=== PATIENT | female | born 1960 | race Caucasian/White ===

== ENCOUNTER → 2017-01-20 | Outpatient (CLI) | payer MEDICAID ==
[~2017-01-20] MED LIST: ABILIFY; ABILIFY5 MG PO; ANCEF1 GM IV; ATARAX10 MG PO; BACTRIM DS 8001 TA1 PO; CALCIUM 600 W/D1 TAB PO; CELEBREX200 MG PO; CIPROFLOXACIN500 MG PO; CLARITIN10 MG PO; CLINDAMYCIN HC300 MG PO; CLONIDINE0.1 MG PO; CYMBALTA30 MG PO; CYMBALTA60 MG PO; DAILY VITAMIN1 TAB PO; FLAGYL500 MG PO; FLEXERIL10 MG PO; HUMIRA40 MG/0.1 SC; HYDR12.5C PO; HYDRODIURIL25 MG PO; KEFLEX250 MG PO; LYRICA300 MG PO; Lotrimin 1%15 GM T; METHOTREXATE1 PO1 PO; METHOTREXATE2.5 M1 PO; NATURE'S BLEND F1 MG PO; PRAVASTATIN SOD20 MG PO; PREDNISOLONE5 MG PO; PREDNISONE5 MG PO; PRILOSEC40 MG PO; ROBAXIN750 MG PO; SPIRIVA18 MCG PO; SYMBICORT1 AE1 INH; TYLENOL W/CODEI1 TA2 PO; VENTOLIN0.09 MG/AC INH; VOLTAREN50 M1 PO; ZOFRAN4 MG PO
== END | disposition home or self-care (01) ==
LOC: CP 14:06
DX: J43.9 Emphysema, unspecified (principal)

== ENCOUNTER 2017-03-01 16:01 | Inpatient (IN) | payer MEDICAID ==
[~2017-03-01] VITALS: Ht 162.5 cm; Wt 141.3 kg
[2017-03-01 16:16] VITALS: BP 122/56
[2017-03-01] MEDS ORDERED: CELEBREX100 MG PO (16:29)
[2017-03-01] MEDS ORDERED: ATARAX,VISTARIL50 MG PO (16:29)
[2017-03-01] MEDS ORDERED: PROVENTIL0.09 MG/A1 INH (16:29)
[2017-03-01] MEDS ORDERED: CLONIDINE HYDR0.1 MG PO (16:30)
[2017-03-01] MEDS ORDERED: CYMBALTA60 MG PO (16:30)
[2017-03-01] MEDS ORDERED: CLARITIN10 MG PO (16:30)
[2017-03-01] MEDS ORDERED: GLYBURIDE5 MG PO (16:31)
[2017-03-01] MEDS ORDERED: CYCLOBENZAPRINE10 MG PO (16:31)
[2017-03-01] MEDS ORDERED: LYRICA300 MG PO (16:31)
[2017-03-01] MEDS ORDERED: OXYGEN NAS (16:32)
[2017-03-01] MEDS ORDERED: KADIAN30 M1 PO (16:32)
[2017-03-01] MEDS ORDERED: OTEZLA30 MG PO (16:32)
[2017-03-01] MEDS ORDERED: PREDNISONE1 MG PO (16:32)
[2017-03-01] MEDS ORDERED: PRILOSEC20 M1 PO (16:33)
[2017-03-01] MEDS ORDERED: SYMBICORT1 AE1 INH (16:33)
[2017-03-01] MEDS ORDERED: SPIRIVA18 MCG PO (16:33)
[2017-03-01] MEDS ORDERED: TYLENOL WITH CO1 TA1 PO ×2 (16:34→18:32)
[2017-03-01 16:35] LABS: BASO % 0.4 % (0.0-1.0); EOS # 0.2 10*3/uL (0.0-0.4); EOS % 2.4 % (1.0-4.0); HEMATOCRIT 40.7 % (37.0-47.0); HEMOGLOBIN 12.7 g/dl (12.0-16.0); LYMPH # 1.6 10*3/uL (1.3-4.4); LYMPH % 23.2 % (27.0-41.0); MEAN CELL VOLUME 81.6 fl (81.0-99.0); MEAN CORPUSCULAR HGB 25.5 pg (27.0-31.0); MEAN CORPUSCULAR HGB CONC 31.2 g/dl (33.0-37.0); MEAN PLATELET VOLUME 10.4 fl (9.6-12.3); MONO # 0.5 10*3/uL (0.1-1.0); MONO % 7.4 % (3.0-9.0); NEUT # 4.5 10*3/uL (2.3-7.9); NEUT % 66.3 % (47.0-73.0); PLATELET COUNT AUTOMATED 255 10*3/uL (130-400); RED BLOOD COUNT 4.99 10*6/uL (4.10-5.10); RED CELL DISTRI WIDTH 15.6 % (0-14.5); WHITE BLOOD COUNT 6.7 10*3/uL (4.8-10.8)
[2017-03-01 16:52] LABS: ALBUMIN 2.9 gm/dl (3.1-4.5); ALKALINE PHOSPHATASE 128 U/L (45-117); BILIRUBIN, TOTAL 0.3 mg/dl (0.2-1.0); BUN 4 mg/dl (7-24); CARBON DIOXIDE 33 mmol/L (21-32); CHLORIDE 100 mmol/L (98-107); EST GLOM FILT AFRICAN AMERICAN > 60 ml/min; GLUCOSE 123 mg/dL (65-99); MAGNESIUM 1.5 mg/dL (1.5-2.1); POTASSIUM 3.6 mmol/L (3.5-5.1); SGOT/AST 39 IU/L (3-35); SGPT/ALT 42 U/L (12-78); SODIUM 142 mmol/L (136-145); TOTAL PROTEIN 7.5 gm/dL (6.4-8.2)
[2017-03-01 17:11] VITALS: BP 169/106
[2017-03-01 17:12] LABS: TROPONIN I < 0.015 ng/ml (<0.045)
[2017-03-01 18:05] VITALS: BP 100/70
[2017-03-01] MEDS ORDERED: MS CONTIN30 MG PO (18:33)
[2017-03-01] MEDS ORDERED: PROAIR HFA8.5 GM INH (18:34)
[2017-03-01] MEDS ORDERED: DULERA 200 MCG8.8 GM IH (18:40)
[2017-03-01 20:00] VITALS: BP 123/74
[2017-03-01 21:47] LABS: LA>2 REFLEX 2 HR DRAW NOW
[2017-03-01 22:04] LABS: LA>2 RFLX FOLLOW UP AT 2 HRS 3.4 mmol/L (0.4-2.0)
[2017-03-01 23:54] LABS: LA>2 REFLEX 4 HR DRAW NOW
[2017-03-02] VITALS: BP 127/76
[2017-03-02 04:36] LABS: BASO % 0.2 % (0.0-1.0); HEMATOCRIT 39.8 % (37.0-47.0); HEMOGLOBIN 12.4 g/dl (12.0-16.0); IG # 0.1 10*3/uL (0.0-0.1); LYMPH # 0.7 10*3/uL (1.3-4.4); MEAN CELL VOLUME 81.7 fl (81.0-99.0); MEAN CORPUSCULAR HGB 25.5 pg (27.0-31.0); MEAN CORPUSCULAR HGB CONC 31.2 g/dl (33.0-37.0); MEAN PLATELET VOLUME 10.5 fl (9.6-12.3); MONO # 0.1 10*3/uL (0.1-1.0); MONO % 1.5 % (3.0-9.0); NEUT # 5.7 10*3/uL (2.3-7.9); NEUT % 86.8 % (47.0-73.0); PLATELET COUNT AUTOMATED 249 10*3/uL (130-400); RED BLOOD COUNT 4.87 10*6/uL (4.10-5.10); RED CELL DISTRI WIDTH 15.7 % (0-14.5); WHITE BLOOD COUNT 6.6 10*3/uL (4.8-10.8)
[2017-03-02 04:56] LABS: HEMOGLOBIN A1c 6.6 % (4.8-5.6)
[2017-03-02 05:00] LABS: ALBUMIN 2.7 gm/dl (3.1-4.5); ALKALINE PHOSPHATASE 121 U/L (45-117); BILIRUBIN, TOTAL 0.2 mg/dl (0.2-1.0); BUN 5 mg/dl (7-24); CARBON DIOXIDE 28 mmol/L (21-32); CHLORIDE 102 mmol/L (98-107); CHOLESTEROL 201 mg/dL (<200); EST GLOM FILT AFRICAN AMERICAN > 60 ml/min; FREE T4 1.16 ng/dl (0.76-1.46); GLUCOSE 225 mg/dL (65-99); HDL CHOLESTEROL 37 mg/dl (40-60); LDL CHOLESTEROL 145 mg/dL (9-159); MAGNESIUM 1.7 mg/dL (1.5-2.1); POTASSIUM 3.8 mmol/L (3.5-5.1); PROTHROMBIN TIME 11.1 SECONDS (9.0-12.4); SGOT/AST 23 IU/L (3-35); SGPT/ALT 37 U/L (12-78); SODIUM 142 mmol/L (136-145); TOTAL PROTEIN 7.1 gm/dL (6.4-8.2); TRIGLYCERIDES 97 mg/dl (<150); VLDL CHOLESTEROL 19 mg/dL (6-40)
[2017-03-02 05:05] LABS: THYROID STIM HORMONE (HS) 0.235 uIU/ml (0.358-4.75)
[2017-03-02 06:27] LABS: LA>2 REFLEX 2 HR DRAW NOW
[2017-03-02 06:45] LABS: LA>2 RFLX FOLLOW UP AT 2 HRS 3.1 mmol/L (0.4-2.0)
[2017-03-02 07:49] LABS: FOLIC ACID 14.39 ng/mL (>5.38); VITAMIN D, 25-HYDROXY 10.1 ng/mL (30-100)
[2017-03-02 08:00] VITALS: BP 132/68
[2017-03-02 08:36] LABS: LA>2 REFLEX 4 HR DRAW NOW
== END 2017-03-02 09:49 | disposition left against medical advice (07) | DRG 871 ==
LOC: ED 16:01 → EDHOLD 17:19 → 5E 17:46
PROVIDERS: Emergency Medicine; Internal Medicine; Internal Medicine Hospice and Palliative Medicine
DX: A41.9 Sepsis, unspecified organism (principal); J96.01 Acute respiratory failure with hypoxia; E43 Unspecified severe protein-calorie malnutrition; J45.901 Unspecified asthma with (acute) exacerbation; J18.9 Pneumonia, unspecified organism; Z68.43 Body mass index [BMI] 50.0-59.9, adult; E11.65 Type 2 diabetes mellitus with hyperglycemia; I10 Essential (primary) hypertension; F32.9 Major depressive disorder, single episode, unspecified; I25.10 Atherosclerotic heart disease of native coronary artery without angina pectoris; Z66 Do not resuscitate; F41.1 Generalized anxiety disorder; K58.9 Irritable bowel syndrome, unspecified; E66.01 Morbid (severe) obesity due to excess calories; R65.20 Severe sepsis without septic shock; D72.810 Lymphocytopenia; L30.9 Dermatitis, unspecified; L40.50 Arthropathic psoriasis, unspecified; Z53.21 Procedure and treatment not carried out due to patient leaving prior to being seen by health care provider; Z88.0 Allergy status to penicillin; Z88.2 Allergy status to sulfonamides; Z88.1 Allergy status to other antibiotic agents; Z80.0 Family history of malignant neoplasm of digestive organs; Z82.49 Family history of ischemic heart disease and other diseases of the circulatory system; Z90.49 Acquired absence of other specified parts of digestive tract; Z90.710 Acquired absence of both cervix and uterus; Z88.9 Allergy status to unspecified drugs, medicaments and biological substances

== ENCOUNTER → 2017-07-17 | Outpatient (CLI) | payer MEDICAID ==
[~2017-07-17] MED LIST changes: +ATARAX,VISTARIL50 MG PO; +CELEBREX100 MG PO; +CLONIDINE HYDR0.1 MG PO; +CYCLOBENZAPRINE10 MG PO; +DULERA 200 MCG8.8 GM IH; +GLYBURIDE5 MG PO; +KADIAN30 M1 PO; +MS CONTIN30 MG PO; +OTEZLA30 MG PO; +OXYGEN NAS; +PREDNISONE1 MG PO; +PRILOSEC20 M1 PO; +PROAIR HFA8.5 GM INH; +PROVENTIL0.09 MG/A1 INH; +TYLENOL WITH CO1 TA1 PO
--- NOTE | 2017-07-17 10:54 | NUR ---
PT WAS HER FOR SIX MINUTE ASSESSMENT. PT DID QUALIFY FOR HOME OXYGEN. PT AT REST SPO2 WAS 90% RA, HR 71, RR 18, BP 120/78 PT AMBULATED APPROXIMATELY 10FT SPO2 87-88% PT WAS PLACED ON 2L/NC SPO2 99% PT CONTINUED TO AMBULATE FOR APPROXIMATELY 20FT PT WAS VERY SHORT OF BREATH SPO2 97% HR 59, RR 21, BP 128/88
== END ==
LOC: CP 09:36
DX: Z53.9 Procedure and treatment not carried out, unspecified reason (principal)

== ENCOUNTER 2019-02-26 18:03 | Emergency (ER) | payer MEDICAID ==
[~2019-02-26] VITALS: Ht 157.4 cm; Wt 135.6 kg
== END 2019-02-26 21:19 | disposition home or self-care (01) ==
LOC: ED 18:03
DX: S80.11XA Contusion of right lower leg, initial encounter (principal); Z79.899 Other long term (current) drug therapy; Z88.0 Allergy status to penicillin; Z88.2 Allergy status to sulfonamides; Z88.6 Allergy status to analgesic agent; Z88.1 Allergy status to other antibiotic agents; Z88.8 Allergy status to other drugs, medicaments and biological substances; W22.03XA Walked into furniture, initial encounter; Y93.89 Activity, other specified; Y92.89 Other specified places as the place of occurrence of the external cause; Y99.8 Other external cause status

== ENCOUNTER → 2019-06-24 | Outpatient (CLI) | payer MEDICAID ==
--- NOTE | ~2019-06-24 | HM ---
[place], [place] HOLTER MONITOR REPORT NAME: ARISTIDES VILLAFANA UNIT #: [id number] ROOM: DOCTOR: ANA PAULA MILLER MD BIRTHDATE: [birth year] DOS: 24-HOUR HOLTER MONITOR The patient remained in sinus rhythm throughout the entire period. Minimum heart rate is 68, maximum heart rate is 145, and average is 94 beats per minute. The patient had episodes of sinus tachycardia and no significant ventricular or supraventricular dysrhythmia. Isolated premature atrial contractions are present. Few episodes of atrial tachycardia. No significant pauses. FINAL IMPRESSION: Sinus rhythm with few episodes of sinus tachycardia underlying sinus tachycardia with an average rate of 94 beats per minute. No significant pauses. No other ventricular or supraventricular dysrhythmia. ANA PAULA MILLER MD CM:HOLTER:HOLTER MONITOR REPORT [id number] ANA PAULA MILLER MD
== END | disposition home or self-care (01) ==
LOC: CARD 08:45
DX: E11.9 Type 2 diabetes mellitus without complications (principal); I10 Essential (primary) hypertension; R00.2 Palpitations

== ENCOUNTER 2019-09-13 07:55 | Emergency (ER) | payer MEDICAID ==
[~2019-09-13] VITALS: Wt 130.6 kg
--- NOTE | ~2019-09-13 | EKG ---
[place], [place] ELECTROCARDIOGRAM REPORT NAME: ARISTIDES VILLAFANA UNIT #: [id number] ROOM: DOCTOR: EPIPHANY DRAFT REPORT BIRTHDATE: [birth year] [facility] Test Date: 2019-09-13 Test Time: 08:15:04 Pat Name: ARISTIDES VILLAFANA Department: Room: Gender: F Photograph Retoucher: : 1960 Requested By: MARIO ALBERTO JUAN Order Number: [id number] Reading MD: Mandi Britton MD Measurements Intervals [place] Rate: 117 P: 65 [place]: 151 QRS: -22 QRSD: 83 T: 28 QT: 331 QTc: 462 Interpretive Statements Sinus tachycardia Anterolateral infarct, old Baseline wander in lead(s) V1,V3,V4,V5,V6 No previous ECG available for comparison Electronically Signed On 09-14-2019 15:06:53 PST by Mandi Britton MD CM:EKGRPT:ELECTROCARDIOGRAM REPORT [id number] MARIO ALBERTO HASSAN DRAFT REPORT MARIO ALBERTO JUAN DO
[2019-09-13 08:25] LABS: BILIRUBIN 1+ (NEGATIVE); BLOOD NEGATIVE (NEGATIVE); CLARITY CLOUDY (CLEAR); COLOR YELLOW (YELLOW); GLUCOSE NEGATIVE (NEGATIVE); KETONE 1+ (NEGATIVE); LEUKO ESTERASE TRACE (NEGATIVE); NITRITE NEGATIVE (NEGATIVE); PH 5.5 (5.0-9.0); SPECIFIC GRAVITY >= 1.030 (1.005-1.030)
[2019-09-13 08:30] LABS: HEMATOCRIT 42.3 % (37.0-47.0); HEMOGLOBIN 13.7 g/dl (12.0-16.0); MEAN CELL VOLUME 75.4 fl (81.0-99.0); MEAN CORPUSCULAR HGB 24.4 pg (27.0-31.0); MEAN CORPUSCULAR HGB CONC 32.4 g/dl (33.0-37.0); MEAN PLATELET VOLUME 11.4 fl (9.6-12.3); PLATELET COUNT AUTOMATED 291 10*3/uL (130-400); RED BLOOD COUNT 5.61 10*6/uL (4.10-5.10); WHITE BLOOD COUNT 31.5 10*3/uL (4.8-10.8)
[2019-09-13 08:35] LABS: WBC 31-40 wbc/hpf (0-5)
[2019-09-13 08:36] LABS: BACTERIA 3+
[2019-09-13 08:40] LABS: ACT PARTIAL THROMBO TIME 32.4 SECONDS (20.0-32.1); INTERNATIONAL NORM RATIO 1.2 (2.0-3.5)
[2019-09-13 08:45] LABS: ALBUMIN 2.4 gm/dl (3.1-4.5); ALKALINE PHOSPHATASE 140 U/L (45-117); BUN 8 mg/dl (7-24); CHLORIDE 94 mmol/L (98-107); CREATININE 0.94 mg/dL (0.55-1.02); LIPASE 35 U/L (73-393); POTASSIUM 3.4 mmol/L (3.5-5.1); SGOT/AST 11 IU/L (3-35); SGPT/ALT 15 U/L (12-78); SODIUM 131 mmol/L (136-145); TOTAL PROTEIN 7.4 gm/dL (6.4-8.2)
[2019-09-13 08:48] LABS: TROPONIN I < 0.015 ng/ml (<0.045)
[2019-09-13 08:50] LABS: TARGET CELLS FEW; TOTAL CELLS COUNTED 100 #CELLS; TOXIC GRANULATION SLIGHT
[2019-09-13 08:51] LABS: POLYCHROMASIA SLIGHT
[2019-09-13 08:52] LABS: MICROCYTOSIS SLIGHT; PLATELET SUFFICIENCY NORMAL (NORMAL)
== END 2019-09-13 14:09 | disposition short-term general hospital (02) ==
LOC: ED 07:55
PROVIDERS: Emergency Medicine
DX: A41.9 Sepsis, unspecified organism (principal); R65.20 Severe sepsis without septic shock; L03.114 Cellulitis of left upper limb; L02.512 Cutaneous abscess of left hand; G93.41 Metabolic encephalopathy; R41.0 Disorientation, unspecified; L40.50 Arthropathic psoriasis, unspecified; J45.909 Unspecified asthma, uncomplicated; K21.9 Gastro-esophageal reflux disease without esophagitis; I10 Essential (primary) hypertension; E66.01 Morbid (severe) obesity due to excess calories; E11.9 Type 2 diabetes mellitus without complications; Z88.0 Allergy status to penicillin; Z88.2 Allergy status to sulfonamides; Z88.6 Allergy status to analgesic agent; Z88.8 Allergy status to other drugs, medicaments and biological substances; Z79.899 Other long term (current) drug therapy; Z90.49 Acquired absence of other specified parts of digestive tract; Z90.710 Acquired absence of both cervix and uterus

== ENCOUNTER → 2020-06-27 | Outpatient (CLI) | payer MEDICAID ==
[2020-06-27 14:29] LABS: BASO # 0.1 10*3/uL (0.0-0.1); BASO % 0.5 % (0.0-1.0); EOS # 0.3 10*3/uL (0.0-0.4); EOS % 2.9 % (1.0-4.0); HEMATOCRIT 38.7 % (37.0-47.0); LYMPH # 2.5 10*3/uL (1.3-4.4); LYMPH % 27.6 % (27.0-41.0); MEAN CELL VOLUME 74.7 fl (81.0-99.0); MEAN CORPUSCULAR HGB CONC 29.5 g/dl (33.0-37.0); MEAN PLATELET VOLUME 11.2 fl (9.6-12.3); MONO # 0.5 10*3/uL (0.1-1.0); MONO % 5.2 % (3.0-9.0); NEUT # 5.8 10*3/uL (2.3-7.9); NEUT % 63.3 % (47.0-73.0); PLATELET COUNT AUTOMATED 332 10*3/uL (130-400); RED BLOOD COUNT 5.18 10*6/uL (4.10-5.10); RED CELL DISTRI WIDTH 18.7 % (0-14.5); RETICULOCYTE % 1.79 % (0.50-2.50); WHITE BLOOD COUNT 9.1 10*3/uL (4.8-10.8)
[2020-06-27 14:59] LABS: ALBUMIN 2.7 gm/dl (3.1-4.5); ALKALINE PHOSPHATASE 123 U/L (45-117); BUN 9 mg/dl (7-24); CHLORIDE 102 mmol/L (98-107); CHOLESTEROL 199 mg/dL (<200); CREATININE 0.76 mg/dL (0.55-1.02); GAMMA GLUTAMYL TRANSPEPTIDASE 34 U/L (5-55); HDL CHOLESTEROL 40 mg/dl (40-60); IRON 27 ug/dL (50-170); LDL CHOLESTEROL 112 mg/dL (9-159); POTASSIUM 3.8 mmol/L (3.5-5.1); SGOT/AST 20 IU/L (3-35); SGPT/ALT 21 U/L (12-78); SODIUM 138 mmol/L (136-145); T3 UPTAKE 31 % (31-39); TOTAL IRON BINDING CAPACITY 401 ug/dl (250-450); TOTAL PROTEIN 7.6 gm/dL (6.4-8.2); TRIGLYCERIDES 234 mg/dl (<150); VLDL CHOLESTEROL 47 mg/dL (6-40)
[2020-06-27 15:05] LABS: THYROXINE (T4) TOTAL 8.7 ug/dl (4.8-13.9)
[2020-06-27 16:14] LABS: FERRITIN 13.3 ng/mL (10.0-291.0); VITAMIN D, 25-HYDROXY 43.6 ng/mL (30-100)
[2020-06-28 06:07] LABS: HEP B CORE AB TOTAL Negative (Negative); HEP B CORE AB, IGM Negative (Negative); HEPATITIS B SURFACE AB Non Reactive (.); HEPATITIS B SURFACE AG Negative (Negative)
== END | disposition home or self-care (01) ==
LOC: LAB 13:03
PROVIDERS: Internal Medicine Rheumatology; ATTEND Family Medicine
DX: E10.9 Type 1 diabetes mellitus without complications (principal); I40.9 Acute myocarditis, unspecified; E55.9 Vitamin D deficiency, unspecified; R79.89 Other specified abnormal findings of blood chemistry

== ENCOUNTER → 2020-11-20 | Outpatient (CLI) | payer MEDICAID | END | disposition home or self-care (01) | LOC: COVID19 14:17 | PROVIDERS: ATTEND Family Medicine | DX: U07.1 COVID-19 (principal) ==

== ENCOUNTER → 2021-06-01 | Outpatient (CLI) | payer MEDICAID ==
[2021-06-01 12:41] LABS: BASO % 0.4 % (0.0-1.0); EOS # 0.2 10*3/uL (0.0-0.4); EOS % 1.5 % (1.0-4.0); HEMATOCRIT 34.9 % (37.0-47.0); LYMPH % 18.8 % (27.0-41.0); MEAN CELL VOLUME 71.7 fl (81.0-99.0); MEAN CORPUSCULAR HGB 21.4 pg (27.0-31.0); MEAN CORPUSCULAR HGB CONC 29.8 g/dl (33.0-37.0); MONO # 0.5 10*3/uL (0.1-1.0); MONO % 4.6 % (3.0-9.0); NEUT % 73.8 % (47.0-73.0); PLATELET COUNT AUTOMATED 343 10*3/uL (130-400); RED BLOOD COUNT 4.87 10*6/uL (4.10-5.10); RED CELL DISTRI WIDTH 18.8 % (0-14.5); RETICULOCYTE % 2.09 % (0.50-2.50); WHITE BLOOD COUNT 10.8 10*3/uL (4.8-10.8)
[2021-06-01 12:45] LABS: BILIRUBIN Negative (Negative); BLOOD Negative (Negative); CLARITY Clear (Clear); COLOR Yellow (Yellow); GLUCOSE 2+ (Negative); KETONE Trace (Negative); LEUKO ESTERASE Trace (Negative); NITRITE Negative (Negative); SPECIFIC GRAVITY 1.015 (1.001-1.030)
[2021-06-01 12:59] LABS: ALBUMIN 2.6 gm/dl (3.1-4.5); ALKALINE PHOSPHATASE 131 U/L (45-117); BUN 8 mg/dl (7-24); CHLORIDE 101 mmol/L (98-107); CHOLESTEROL 189 mg/dL (<200); CREATININE 0.77 mg/dL (0.55-1.02); GAMMA GLUTAMYL TRANSPEPTIDASE 57 U/L (5-55); IRON 20 ug/dL (50-170); LDL CHOLESTEROL 113 mg/dL (9-159); POTASSIUM 3.5 mmol/L (3.5-5.1); SGOT/AST 23 IU/L (3-35); SGPT/ALT 20 U/L (12-78); SODIUM 134 mmol/L (136-145); THYROXINE (T4) TOTAL 10.5 ug/dl (4.8-13.9); TOTAL IRON BINDING CAPACITY 389 ug/dl (250-450); TRIGLYCERIDES 201 mg/dl (<150)
[2021-06-01 13:06] LABS: T3 UPTAKE 34 % (31-39); THYROID STIM HORMONE (HS) 0.656 uIU/ml (0.358-4.75)
[2021-06-01 13:25] LABS: YEAST 2+
[2021-06-01 14:05] LABS: FERRITIN 15.4 ng/mL (10.0-291.0); VITAMIN D, 25-HYDROXY 17.6 ng/mL (30-100)
== END | disposition home or self-care (01) ==
LOC: LAB 12:12
PROVIDERS: ATTEND Family Medicine
DX: E55.9 Vitamin D deficiency, unspecified (principal); R79.89 Other specified abnormal findings of blood chemistry; R53.83 Other fatigue; R74.8 Abnormal levels of other serum enzymes; E11.9 Type 2 diabetes mellitus without complications

== ENCOUNTER 2021-11-14 01:34 | Emergency (ER) | payer MEDICAID ==
[~2021-11-14] VITALS: Ht 152.4 cm; Wt 127.0 kg
[2021-11-14] MEDS ORDERED: MIRALAX POWDER17 G1 PO (04:53)
== END 2021-11-14 08:33 | disposition home or self-care (01) ==
LOC: ED 01:34
DX: K59.00 Constipation, unspecified (principal); Z88.0 Allergy status to penicillin; Z88.1 Allergy status to other antibiotic agents; Z88.6 Allergy status to analgesic agent; Z88.8 Allergy status to other drugs, medicaments and biological substances; Z79.899 Other long term (current) drug therapy; Z90.49 Acquired absence of other specified parts of digestive tract; Z90.710 Acquired absence of both cervix and uterus; Z98.890 Other specified postprocedural states

== ENCOUNTER → 2022-01-08 | Outpatient (CLI) | payer MEDICAID ==
[~2022-01-08] MED LIST changes: +MIRALAX POWDER17 G1 PO
[2022-01-08 12:29] LABS: BASO # 0.1 10*3/uL (0.0-0.1); BASO % 0.6 % (0.0-1.0); EOS # 0.2 10*3/uL (0.0-0.4); EOS % 1.4 % (1.0-4.0); LYMPH # 2.1 10*3/uL (1.3-4.4); LYMPH % 19.3 % (27.0-41.0); MEAN CELL VOLUME 70.8 fl (81.0-99.0); MEAN CORPUSCULAR HGB CONC 31.1 g/dl (33.0-37.0); MEAN PLATELET VOLUME 10.4 fl (9.6-12.3); MONO # 0.5 10*3/uL (0.1-1.0); MONO % 4.6 % (3.0-9.0); NEUT # 7.9 10*3/uL (2.3-7.9); NEUT % 73.4 % (47.0-73.0); PLATELET COUNT AUTOMATED 352 10*3/uL (130-400); RED BLOOD COUNT 5.37 10*6/uL (4.10-5.10); RED CELL DISTRI WIDTH 17.8 % (0-14.5); WHITE BLOOD COUNT 10.8 10*3/uL (4.8-10.8)
[2022-01-08 12:40] LABS: BILIRUBIN Negative (Negative); BLOOD Negative (Negative); CLARITY Clear (Clear); COLOR Yellow (Yellow); GLUCOSE Negative (Negative); KETONE Negative (Negative); LEUKO ESTERASE 1+ (Negative); NITRITE Negative (Negative); PH 7.5 (4.5-8.0); SPECIFIC GRAVITY <= 1.005 (1.001-1.030); UROBILINOGEN 0.2 E.U./dl (0.0-1.0)
[2022-01-08 13:15] LABS: RBC 0-2 rbc/hpf (0-2)
[2022-01-08 13:16] LABS: BACTERIA 1+; MUCOUS 1+
[2022-01-08 13:18] LABS: ALKALINE PHOSPHATASE 118 U/L (45-117); BUN 6 mg/dl (7-24); CHLORIDE 101 mmol/L (98-107); CHOLESTEROL 205 mg/dL (<200); LDL CHOLESTEROL 125 mg/dL (9-159); POTASSIUM 3.8 mmol/L (3.5-5.1); SGOT/AST 11 IU/L (3-35); SGPT/ALT 15 U/L (12-78); SODIUM 136 mmol/L (136-145); TRIGLYCERIDES 193 mg/dl (<150)
[2022-01-08 13:18] LABS: YEAST 1+
[2022-01-08 13:31] LABS: FERRITIN 15.8 ng/mL (10.0-291.0); VITAMIN D, 25-HYDROXY 40.6 ng/mL (30-100)
[2022-01-08 13:39] LABS: CREATININE 0.74 mg/dL (0.55-1.02); GAMMA GLUTAMYL TRANSPEPTIDASE 46 U/L (5-55); IRON 25 ug/dL (50-170); TOTAL IRON BINDING CAPACITY 384 ug/dl (250-450); TOTAL PROTEIN 7.5 gm/dL (6.4-8.2)
[2022-01-08 13:44] LABS: THYROID STIM HORMONE (HS) 0.595 uIU/ml (0.358-4.75)
== END | disposition home or self-care (01) ==
LOC: LAB 12:00
PROVIDERS: ATTEND Family Medicine
DX: E78.5 Hyperlipidemia, unspecified (principal); E55.9 Vitamin D deficiency, unspecified; R79.89 Other specified abnormal findings of blood chemistry; R53.83 Other fatigue; R74.8 Abnormal levels of other serum enzymes

== ENCOUNTER → 2022-10-28 | Outpatient (CLI) | payer MEDICAID ==
[2022-10-28 13:18] LABS: HEMATOCRIT 39.2 % (37.0-47.0); MANUAL DIFF REFLEX YES; MEAN CELL VOLUME 70.1 fl (81.0-99.0); MEAN CORPUSCULAR HGB 21.1 pg (27.0-31.0); MEAN CORPUSCULAR HGB CONC 30.1 g/dl (33.0-37.0); MEAN PLATELET VOLUME 10.9 fl (9.6-12.3); PLATELET COUNT AUTOMATED 326 10*3/uL (130-400); RED BLOOD COUNT 5.59 10*6/uL (4.10-5.10); RED CELL DISTRI WIDTH 18.8 % (0-14.5); RETICULOCYTE % 1.86 % (0.50-2.50); WHITE BLOOD COUNT 9.7 10*3/uL (4.8-10.8)
[2022-10-28 13:35] LABS: ALKALINE PHOSPHATASE 117 U/L (46-116); BUN 7 mg/dl (9-23); CHLORIDE 98 mmol/L (98-107); CHOLESTEROL 211 mg/dL (<200); GAMMA GLUTAMYL TRANSPEPTIDASE 39 U/L (0-73); LDL CHOLESTEROL 99 mg/dL (9-159); SGPT/ALT 8 U/L (10-49); T3 UPTAKE 23.1 % (22.4-36.7); THYROID STIM HORMONE (HS) 0.575 uIU/ml (0.550-4.780); THYROXINE (T4) TOTAL 8.5 ug/dl (4.5-10.9); TOTAL PROTEIN 6.9 gm/dL (6.0-8.0); TRIGLYCERIDES 342 mg/dl (<150)
[2022-10-28 14:24] LABS: VITAMIN D, 25-HYDROXY 26.6 ng/mL (30-100)
[2022-10-29 08:55] LABS: BASO # 0.1 10*3/uL (0.0-0.1); BASO % 0.7 % (0.0-1.0); EOS # 0.1 10*3/uL (0.0-0.4); EOS % 1.3 % (1.0-4.0); LYMPH # 1.9 10*3/uL (1.3-4.4); LYMPH % 19.6 % (27.0-41.0); MONO # 0.6 10*3/uL (0.1-1.0); MONO % 5.8 % (3.0-9.0)
== END | disposition home or self-care (01) ==
LOC: LAB 12:36
PROVIDERS: ATTEND Family Medicine
DX: R79.89 Other specified abnormal findings of blood chemistry (principal); R53.83 Other fatigue; E78.5 Hyperlipidemia, unspecified; E55.9 Vitamin D deficiency, unspecified

== ENCOUNTER → 2022-12-25 | Outpatient (CLI) | payer MEDICAID | END | disposition home or self-care (01) | LOC: RAD 11:59 | PROVIDERS: ATTEND Family Medicine | DX: M51.36 Other intervertebral disc degeneration, lumbar region (principal); M16.11 Unilateral primary osteoarthritis, right hip; M48.07 Spinal stenosis, lumbosacral region; M51.37 Other intervertebral disc degeneration, lumbosacral region ==

== ENCOUNTER → 2023-02-12 | Outpatient (CLI) | payer MEDICAID ==
[2023-02-12 11:59] LABS: BASO # 0.1 10*3/uL (0.0-0.1); BASO % 0.6 % (0.0-1.0); EOS # 0.4 10*3/uL (0.0-0.4); EOS % 4.5 % (1.0-4.0); HEMATOCRIT 36.2 % (37.0-47.0); LYMPH # 2.1 10*3/uL (1.3-4.4); LYMPH % 23.5 % (27.0-41.0); MEAN CELL VOLUME 72.1 fl (81.0-99.0); MEAN CORPUSCULAR HGB 20.5 pg (27.0-31.0); MEAN CORPUSCULAR HGB CONC 28.5 g/dl (33.0-37.0); MONO # 0.5 10*3/uL (0.1-1.0); MONO % 5.7 % (3.0-9.0); NEUT # 5.7 10*3/uL (2.3-7.9); NEUT % 65.1 % (47.0-73.0); PLATELET COUNT AUTOMATED 339 10*3/uL (130-400); RED BLOOD COUNT 5.02 10*6/uL (4.10-5.10); RED CELL DISTRI WIDTH 18.5 % (0-14.5); WHITE BLOOD COUNT 8.7 10*3/uL (4.8-10.8)
[2023-02-12 13:00] LABS: ALKALINE PHOSPHATASE 111 U/L (46-116); BUN 5 mg/dl (9-23); CHLORIDE 100 mmol/L (98-107); POTASSIUM 3.2 mmol/L (3.4-5.1); SGPT/ALT 9 U/L (10-49); TOTAL PROTEIN 6.5 gm/dL (6.0-8.0)
== END | disposition home or self-care (01) ==
LOC: LAB 11:22
PROVIDERS: ATTEND Nurse Practitioner Family
DX: I51.7 Cardiomegaly (principal); R09.89 Other specified symptoms and signs involving the circulatory and respiratory systems; L40.0 Psoriasis vulgaris; D48.5 Neoplasm of uncertain behavior of skin; R06.02 Shortness of breath

== ENCOUNTER → 2023-03-17 | Outpatient (CLI) | payer MEDICAID ==
[2023-03-17 12:41] LABS: BASO # 0.1 10*3/uL (0.0-0.1); BASO % 0.5 % (0.0-1.0); EOS # 0.2 10*3/uL (0.0-0.4); HEMATOCRIT 41.1 % (37.0-47.0); LYMPH # 1.9 10*3/uL (1.3-4.4); MEAN CELL VOLUME 73.5 fl (81.0-99.0); MEAN CORPUSCULAR HGB 22.2 pg (27.0-31.0); MEAN CORPUSCULAR HGB CONC 30.2 g/dl (33.0-37.0); MEAN PLATELET VOLUME 10.4 fl (9.6-12.3); MONO # 0.4 10*3/uL (0.1-1.0); MONO % 4.1 % (3.0-9.0); NEUT # 7.1 10*3/uL (2.3-7.9); PLATELET COUNT AUTOMATED 326 10*3/uL (130-400); RED BLOOD COUNT 5.59 10*6/uL (4.10-5.10); RED CELL DISTRI WIDTH 22.3 % (0-14.5); RETICULOCYTE % 1.83 % (0.50-2.50); WHITE BLOOD COUNT 9.7 10*3/uL (4.8-10.8)
[2023-03-17 13:06] LABS: ALKALINE PHOSPHATASE 107 U/L (46-116); BUN 7 mg/dl (9-23); CHLORIDE 102 mmol/L (98-107); CHOLESTEROL 201 mg/dL (<200); GAMMA GLUTAMYL TRANSPEPTIDASE 36 U/L (0-73); LDL CHOLESTEROL 118 mg/dL (9-159); THYROID STIM HORMONE (HS) 0.877 uIU/ml (0.550-4.780); TOTAL PROTEIN 6.9 gm/dL (6.0-8.0); TRIGLYCERIDES 209 mg/dl (<150)
[2023-03-17 13:08] LABS: SGPT/ALT < 7 U/L (10-49)
== END | disposition home or self-care (01) ==
LOC: LAB 12:13
PROVIDERS: ATTEND Family Medicine
DX: E78.5 Hyperlipidemia, unspecified (principal); R79.89 Other specified abnormal findings of blood chemistry; R53.83 Other fatigue; R74.8 Abnormal levels of other serum enzymes

== ENCOUNTER → 2023-03-26 | Outpatient (CLI) | payer MEDICAID | END | disposition home or self-care (01) | LOC: CARD 00:14 | PROVIDERS: ATTEND Internal Medicine Cardiovascular Disease | DX: I51.7 Cardiomegaly (principal); R00.0 Tachycardia, unspecified ==

== ENCOUNTER → 2023-06-02 | Outpatient (CLI) | payer MEDICAID ==
[2023-06-04 20:07] LABS: TB1 Ag VALUE 0.04 IU/mL (.)
== END | disposition home or self-care (01) ==
LOC: LAB 10:52
PROVIDERS: ATTEND Nurse Practitioner Family
DX: L40.0 Psoriasis vulgaris (principal)

== ENCOUNTER → 2023-08-14 | Outpatient (CLI) | payer MEDICAID | END | disposition home or self-care (01) | LOC: RAD 11:42 | PROVIDERS: ATTEND Physician Assistant | DX: M51.37 Other intervertebral disc degeneration, lumbosacral region (principal); M47.817 Spondylosis without myelopathy or radiculopathy, lumbosacral region; M48.07 Spinal stenosis, lumbosacral region ==

== ENCOUNTER → 2023-11-06 | Outpatient (CLI) | payer MEDICAID | END | disposition home or self-care (01) | LOC: RAD 11:58 | PROVIDERS: ATTEND Physician Assistant | DX: M41.82 Other forms of scoliosis, cervical region (principal); M47.812 Spondylosis without myelopathy or radiculopathy, cervical region; M48.02 Spinal stenosis, cervical region ==

== ENCOUNTER → 2023-11-10 | Outpatient (CLI) | payer MEDICAID ==
[2023-11-10 12:51] LABS: BASO # 0.1 10*3/uL (0.0-0.1); BASO % 0.7 % (0.0-1.0); EOS # 0.2 10*3/uL (0.0-0.4); EOS % 2.7 % (1.0-4.0); HEMATOCRIT 39.1 % (37.0-47.0); LYMPH % 23.1 % (27.0-41.0); MEAN CORPUSCULAR HGB CONC 29.2 g/dl (33.0-37.0); MEAN PLATELET VOLUME 10.5 fl (9.6-12.3); MONO # 0.5 10*3/uL (0.1-1.0); MONO % 5.5 % (3.0-9.0); NEUT # 5.9 10*3/uL (2.3-7.9); NEUT % 67.3 % (47.0-73.0); PLATELET COUNT AUTOMATED 335 10*3/uL (130-400); RED BLOOD COUNT 5.43 10*6/uL (4.10-5.10); RED CELL DISTRI WIDTH 19.1 % (0-14.5); WHITE BLOOD COUNT 8.8 10*3/uL (4.8-10.8)
[2023-11-10 13:34] LABS: ALKALINE PHOSPHATASE 118 U/L (46-116); BUN < 5 mg/dl (9-23); CHLORIDE 100 mmol/L (98-107); POTASSIUM 4.1 mmol/L (3.4-5.1); SGPT/ALT 10 U/L (5-49); TOTAL PROTEIN 6.9 gm/dL (6.0-8.0)
== END | disposition home or self-care (01) ==
LOC: LAB 11:48
PROVIDERS: ATTEND Nurse Practitioner Family
DX: L40.0 Psoriasis vulgaris (principal)

== ENCOUNTER 2024-03-31 07:25 | Inpatient (IN) | payer MEDICAID ==
[~2024-03-31] VITALS: Ht 157.4 cm; Wt 129.9 kg
[~2024-03-31 07:25] MED LIST changes: +TYLE3UD PO
[2024-03-31 07:28] VITALS: BP 174/99
[2024-03-31] MEDS ORDERED: SODIUM CHLORIDE 0.9% 1,000 ML IV ONE (07:35)
[2024-03-31] MEDS ORDERED: IOHEXOL 300 MG/ML 100 ML VIAL IV ONE (07:40)
[2024-03-31] MEDS ORDERED: Ondansetron Hydrochloride 4 MG/2 ML VIAL IV ONE (07:45)
[2024-03-31 07:54] LABS: BASO % 0.4 % (0.0-1.0); EOS # 0.1 10*3/uL (0.0-0.4); HEMATOCRIT 40.3 % (37.0-47.0); LYMPH # 0.6 10*3/uL (1.3-4.4); LYMPH % 11.6 % (27.0-41.0); MEAN CELL VOLUME 69.5 fl (81.0-99.0); MEAN CORPUSCULAR HGB 21.2 pg (27.0-31.0); MEAN CORPUSCULAR HGB CONC 30.5 g/dl (33.0-37.0); MEAN PLATELET VOLUME 9.9 fl (9.6-12.3); MONO # 0.6 10*3/uL (0.1-1.0); MONO % 11.8 % (3.0-9.0); NEUT # 3.9 10*3/uL (2.3-7.9); NEUT % 74.4 % (47.0-73.0); PLATELET COUNT AUTOMATED 279 10*3/uL (130-400); RED CELL DISTRI WIDTH 19.5 % (0-14.5); WHITE BLOOD COUNT 5.3 10*3/uL (4.8-10.8)
[2024-03-31 08:04] LABS: ACT PARTIAL THROMBO TIME 34.7 SECONDS (20.0-32.1)
[2024-03-31 08:28] LABS: ALKALINE PHOSPHATASE 112 U/L (46-116); BUN 6 mg/dl (9-23); CHLORIDE 94 mmol/L (98-107); LIPASE 28 U/L (12-53); POTASSIUM 3.3 mmol/L (3.4-5.1); SGPT/ALT 61 U/L (5-49); TOTAL PROTEIN 7.1 gm/dL (6.0-8.0)
[2024-03-31 08:44] LABS: ETHYL ALCOHOL < 3.0 mg/dl (<3)
[2024-03-31] MEDS ORDERED: MAGNESIUM SULFATE 100 ML IV ONE (09:00)
[2024-03-31] MEDS ORDERED: AZITHROMYCIN 250 ML IV ONE (09:00)
[2024-03-31] MEDS ORDERED: Ceftriaxone Sodium 1 GM/10 ML SYR IV ONE (09:00)
[2024-03-31] MEDS ORDERED: POTASSIUM CHLORIDE IN WATER 100 ML IV SCH (11:00)
[2024-03-31] MEDS ORDERED: BISACODYL 5 MG TAB PO PRN (11:55)
[2024-03-31] MEDS ORDERED: ACETAMINOPHEN 325 MG TAB PO PRN (11:55)
[2024-03-31] MEDS ORDERED: Acetaminophen/Hydrocodone 5 MG/325 MG TABLET PO PRN (11:55)
[2024-03-31] MEDS ORDERED: Ondansetron Hydrochloride 4 MG/2 ML VIAL IV PRN (11:55)
[2024-03-31] MEDS ORDERED: DEXTROSE 10 % IN WATER 250 ML IV PRN (12:10)
[2024-03-31] MEDS ORDERED: Albuterol Sulf/Ipratropium 3 ML VIAL NEB SCH (12:42)
[2024-03-31 14:52] LABS: BILIRUBIN Negative (Negative); BLOOD Negative (Negative); CLARITY Clear (Clear); COLOR Yellow (Yellow); GLUCOSE Trace (Negative); KETONE 2+ (Negative); LEUKO ESTERASE Negative (Negative); NITRITE Negative (Negative); SPECIFIC GRAVITY >= 1.030 (1.001-1.030); UROBILINOGEN 0.2 E.U./dl (0.0-1.0)
[2024-03-31 15:05] LABS: URINE AMPHETAMINES Negative (1000ng/ml); URINE BARBITURATES Negative (200ng/ml); URINE BENZODIAZEPINES Negative (200ng/ml); URINE CANNABINOIDS (THC) Negative (50ng/ml); URINE COCAINE Negative (300ng/ml); URINE METHADONE Negative (300ng/ml); URINE OPIATES Positive (300ng/ml); URINE PHENCYCLIDINE Negative (25ng/ml)
[2024-03-31 15:06] VITALS: BP 149/82
[2024-03-31 15:06] LABS: BACTERIA TRACE; WBC 0-2 wbc/hpf (0-5); YEAST TRACE
[2024-03-31] MEDS ORDERED: INSULIN LISPRO 1 UNIT/0.01 ML SQ SCH (16:30)
[2024-03-31 17:49] LABS: CHLORIDE 96 mmol/L (98-107); POTASSIUM 3.1 mmol/L (3.4-5.1)
[2024-03-31] MEDS ORDERED: HYDR25T PO (17:49)
[2024-03-31] MEDS ORDERED: FISH OIL 1,0001 EAC3 PO (17:50)
[2024-03-31 17:51] LABS: BUN < 5 mg/dl (9-23)
[2024-03-31] MEDS ORDERED: LEXAPRO5 M1 PO (17:55)
[2024-03-31] MEDS ORDERED: ZANAFLEX2 M1 PO (18:02)
[2024-03-31] MEDS ORDERED: DAILY VALUE1 EACH PO (18:06)
[2024-03-31] MEDS ORDERED: SODIUM CHLORIDE 0.9% 500 ML IV ONE (18:25)
[2024-03-31 21:47] VITALS: BP 172/91
[2024-03-31] MEDS ORDERED: Menthol/Zinc Oxide 4 GM THIN T SCH (23:15)
[2024-03-31] MEDS ORDERED: PREGABALIN 75 MG CAP PO SCH (23:20)
[2024-03-31] MEDS ORDERED: cloNIDine Hydrochloride 0.1 MG TAB PO SCH (23:20)
[2024-03-31] MEDS ORDERED: MORPHINE Sulfate 30 MG TAB PO SCH (23:20)
[2024-03-31] MEDS ORDERED: ESCITALOPRAM OXALATE 10 MG TAB PO SCH (23:20)
[2024-03-31 23:42] LABS: CHLORIDE 96 mmol/L (98-107); POTASSIUM 3.4 mmol/L (3.4-5.1)
[2024-03-31 23:47] LABS: BUN < 5 mg/dl (9-23)
[2024-04-01] VITALS (7 sets, daily range): BP systolic 100–174; BP diastolic 50–93
[2024-04-01] MEDS ORDERED: MORPHINE Sulfate 2 MG/ML SYR IV ONE (02:15)
[2024-04-01] MEDS ORDERED: Metoclopramide Hydrochloride 10 MG/2 ML AMP IV PRN (02:15)
[2024-04-01 06:04] LABS: BASO % 0.2 % (0.0-1.0); HEMATOCRIT 39.6 % (37.0-47.0); LYMPH # 0.7 10*3/uL (1.3-4.4); LYMPH % 14.6 % (27.0-41.0); MEAN CELL VOLUME 69.2 fl (81.0-99.0); MEAN CORPUSCULAR HGB 21.3 pg (27.0-31.0); MEAN CORPUSCULAR HGB CONC 30.8 g/dl (33.0-37.0); MEAN PLATELET VOLUME 10.1 fl (9.6-12.3); MONO # 0.6 10*3/uL (0.1-1.0); NEUT # 3.7 10*3/uL (2.3-7.9); NEUT % 73.2 % (47.0-73.0); PLATELET COUNT AUTOMATED 266 10*3/uL (130-400); RED BLOOD COUNT 5.72 10*6/uL (4.10-5.10); RED CELL DISTRI WIDTH 19.7 % (0-14.5); RETICULOCYTE % 1.81 % (0.50-2.50); WHITE BLOOD COUNT 5.1 10*3/uL (4.8-10.8)
[2024-04-01 06:36] LABS: CHLORIDE 95 mmol/L (98-107); CHOLESTEROL 176 mg/dL (<200); FREE T4 1.26 ng/dl (0.89-1.76); LDL CHOLESTEROL 121 mg/dL (9-159); TRIGLYCERIDES 152 mg/dl (<150)
[2024-04-01 06:37] LABS: VITAMIN D, 25-HYDROXY 39.7 ng/mL (30-100)
[2024-04-01 06:38] LABS: BUN < 5 mg/dl (9-23)
[2024-04-01] MEDS ORDERED: POTASSIUM CHLORIDE 20 MEQ TAB PO ONE (07:05)
[2024-04-01] MEDS ORDERED: SODIUM CHLORIDE 0.9% 1,000 ML IV ONE (07:10)
[2024-04-01] MEDS ORDERED: SUCRALFATE 1 GM TAB PO SCH (07:30)
[2024-04-01] MEDS ORDERED: LORazepam 2 MG/ML VIAL IV ONE (08:45)
[2024-04-01] MEDS ORDERED: Enoxaparin Sodium 40 MG/0.4 ML SYR SC SCH (10:00)
[2024-04-01] MEDS ORDERED: MORPHINE Sulfate 30 MG TAB PO SCH (10:00)
[2024-04-01] MEDS ORDERED: cloNIDine Hydrochloride 0.1 MG TAB PO SCH ×2 (10:00→11:00)
[2024-04-01] MEDS ORDERED: ESCITALOPRAM OXALATE 10 MG TAB PO SCH (10:00)
[2024-04-01] MEDS ORDERED: Ceftriaxone Sodium 1 GM,IV 1 EA in SYRINGE INFUSION 10 ML IV SCH (10:00)
[2024-04-01] MEDS ORDERED: NA FERRIC GLUC CMPL/SUCROSE 62.5 MG/5 ML VIAL IV SCH (10:00)
[2024-04-01] MEDS ORDERED: OMEPRAZOLE 20 MG CAP PO SCH (10:00)
[2024-04-01] MEDS ORDERED: predniSONE 20 MG TAB PO SCH (10:00)
[2024-04-01] MEDS ORDERED: NYSTATIN 15 GM BOT T SCH (10:00)
[2024-04-01] MEDS ORDERED: PREGABALIN 75 MG CAP PO SCH (10:00)
[2024-04-01] MEDS ORDERED: HYDROCHLOROTHIAZIDE 25 MG TAB PO SCH (10:00)
[2024-04-01] MEDS ORDERED: FUROSEMIDE 40 MG/4 ML VIAL IV ONE (11:35)
[2024-04-01] MEDS ORDERED: Phosphorus/Potassium 1.45 GM PACKET PO SCH (12:00)
[2024-04-02] VITALS: BP 123/77
[2024-04-02 07:54] LABS: BUN 7 mg/dl (9-23); CHLORIDE 95 mmol/L (98-107); POTASSIUM 3.7 mmol/L (3.4-5.1)
[2024-04-02 08:00] VITALS: BP 127/64
[2024-04-02 12:21] VITALS: BP 112/58
[2024-04-02 16:00] VITALS: BP 103/66
[2024-04-02 20:00] VITALS: BP 132/64
[2024-04-03 05:24] LABS: BUN 10 mg/dl (9-23); CHLORIDE 92 mmol/L (98-107); POTASSIUM 3.7 mmol/L (3.4-5.1)
[2024-04-03 06:07] LABS: HEMATOCRIT 35.7 % (37.0-47.0); MEAN CELL VOLUME 70.8 fl (81.0-99.0); MEAN CORPUSCULAR HGB CONC 29.7 g/dl (33.0-37.0); MEAN PLATELET VOLUME 10.5 fl (9.6-12.3); PLATELET COUNT AUTOMATED 234 10*3/uL (130-400); RED BLOOD COUNT 5.04 10*6/uL (4.10-5.10); RED CELL DISTRI WIDTH 19.4 % (0-14.5); WHITE BLOOD COUNT 4.7 10*3/uL (4.8-10.8)
[2024-04-03 06:16] LABS: MANUAL DIFF REFLEX YES
[2024-04-03 07:00] LABS: ATYPICAL LYMPHS 5 % (0-0); MICROCYTOSIS SLIGHT; PLATELET SUFFICIENCY NORMAL (NORMAL); POLYCHROMASIA SLIGHT; TOTAL CELLS COUNTED 100 #CELLS
[2024-04-03 07:01] LABS: ROULEAUX SLIGHT
[2024-04-03 08:00] VITALS: BP 118/71
[2024-04-03 12:00] VITALS: BP 116/62
[2024-04-03 16:00] VITALS: BP 120/68
[2024-04-03 20:00] VITALS: BP 101/59
[2024-04-04] VITALS: BP 105/55
[2024-04-04 08:02] VITALS: BP 123/74
[2024-04-04] MEDS ORDERED: 'CLONIDINE0.1 MG PO (09:44)
[2024-04-04] MEDS ORDERED: OMNICEF300 MG PO (09:44)
[2024-04-04] MEDS ORDERED: ZITHROMAX500 MG PO (09:44)
[2024-04-04] MEDS ORDERED: FEROSUL325 MG PO (09:46)
[2024-04-05] MEDS ORDERED: predniSONE 1 MG TAB PO SCH (10:00)
== END 2024-04-04 13:10 | disposition home health service (06) | DRG 720 ==
LOC: ED 07:25 → EDHOLD 10:43 → 4E 10:43 → EDHOLD 10:45 → 4E 18:28
PROVIDERS: Internal Medicine; Registered Nurse; Student in an Organized Health Care Education/Training Program; ADMIT Internal Medicine; ATTEND Internal Medicine
DX: A41.9 Sepsis, unspecified organism (principal); J15.69 Pneumonia due to other Gram-negative bacteria; L40.50 Arthropathic psoriasis, unspecified; J96.11 Chronic respiratory failure with hypoxia; E87.6 Hypokalemia; F41.1 Generalized anxiety disorder; E83.42 Hypomagnesemia; I10 Essential (primary) hypertension; K21.9 Gastro-esophageal reflux disease without esophagitis; Z66 Do not resuscitate; E11.65 Type 2 diabetes mellitus with hyperglycemia; J45.909 Unspecified asthma, uncomplicated; F32.A Depression, unspecified; D50.0 Iron deficiency anemia secondary to blood loss (chronic); Z71.89 Other specified counseling; Z88.6 Allergy status to analgesic agent; Z88.1 Allergy status to other antibiotic agents; Z88.0 Allergy status to penicillin; Z88.2 Allergy status to sulfonamides; Z88.8 Allergy status to other drugs, medicaments and biological substances; Z90.710 Acquired absence of both cervix and uterus; Z90.49 Acquired absence of other specified parts of digestive tract; Z84.1 Family history of disorders of kidney and ureter; Z82.49 Family history of ischemic heart disease and other diseases of the circulatory system; Z80.0 Family history of malignant neoplasm of digestive organs; Z51.5 Encounter for palliative care

== ENCOUNTER → 2024-04-21 | Outpatient (CLI) | payer MEDICAID ==
[~2024-04-21] MED LIST changes: +'CLONIDINE0.1 MG PO; +DAILY VALUE1 EACH PO; +FEROSUL325 MG PO; +FISH OIL 1,0001 EAC3 PO; +HYDR25T PO; +LEXAPRO5 M1 PO; +OMNICEF300 MG PO; +ZANAFLEX2 M1 PO; +ZITHROMAX500 MG PO
[2024-04-21 08:45] LABS: BASO # 0.1 10*3/uL (0.0-0.1); BASO % 0.7 % (0.0-1.0); EOS # 0.3 10*3/uL (0.0-0.4); EOS % 3.3 % (1.0-4.0); HEMATOCRIT 40.9 % (37.0-47.0); LYMPH # 1.7 10*3/uL (1.3-4.4); LYMPH % 22.8 % (27.0-41.0); MEAN CELL VOLUME 74.5 fl (81.0-99.0); MEAN CORPUSCULAR HGB 22.8 pg (27.0-31.0); MEAN CORPUSCULAR HGB CONC 30.6 g/dl (33.0-37.0); MONO # 0.5 10*3/uL (0.1-1.0); MONO % 6.4 % (3.0-9.0); NEUT # 5.1 10*3/uL (2.3-7.9); NEUT % 66.5 % (47.0-73.0); PLATELET COUNT AUTOMATED 292 10*3/uL (130-400); RED BLOOD COUNT 5.49 10*6/uL (4.10-5.10); RED CELL DISTRI WIDTH 23.9 % (0-14.5); WHITE BLOOD COUNT 7.6 10*3/uL (4.8-10.8)
[2024-04-21 09:59] LABS: ALKALINE PHOSPHATASE 108 U/L (46-116); CHLORIDE 101 mmol/L (98-107); POTASSIUM 3.9 mmol/L (3.4-5.1); SGPT/ALT 14 U/L (5-49); TOTAL PROTEIN 6.7 gm/dL (6.0-8.0)
[2024-04-21 10:10] LABS: BUN < 5 mg/dl (9-23)
== END | disposition home or self-care (01) ==
LOC: LAB 08:11
PROVIDERS: ATTEND Nurse Practitioner Family
DX: L40.0 Psoriasis vulgaris (principal)

== ENCOUNTER → 2025-01-17 | Outpatient (CLI) | payer MEDICAID ==
[2025-01-17 09:21] LABS: BASO % 0.5 % (0.0-1.0); EOS # 0.4 10*3/uL (0.0-0.4); EOS % 5.4 % (1.0-4.0); HEMATOCRIT 39.3 % (37.0-47.0); MEAN CELL VOLUME 74.7 fl (81.0-99.0); MEAN CORPUSCULAR HGB 23.4 pg (27.0-31.0); MEAN CORPUSCULAR HGB CONC 31.3 g/dl (33.0-37.0); MEAN PLATELET VOLUME 10.5 fl (9.6-12.3); MONO # 0.6 10*3/uL (0.1-1.0); MONO % 9.8 % (3.0-9.0); NEUT # 3.1 10*3/uL (2.3-7.9); NEUT % 46.5 % (47.0-73.0); PLATELET COUNT AUTOMATED 303 10*3/uL (130-400); RED BLOOD COUNT 5.26 10*6/uL (4.10-5.10); RED CELL DISTRI WIDTH 16.3 % (0-14.5); RETICULOCYTE % 1.39 % (0.50-2.50); WHITE BLOOD COUNT 6.5 10*3/uL (4.8-10.8)
[2025-01-17 10:01] LABS: ALKALINE PHOSPHATASE 109 U/L (46-116); BUN 7 mg/dl (9-23); CHLORIDE 100 mmol/L (98-107); CHOLESTEROL 128 mg/dL (<200); GAMMA GLUTAMYL TRANSPEPTIDASE 28 U/L (0-73); LDL CHOLESTEROL 69 mg/dL (9-159); POTASSIUM 3.5 mmol/L (3.4-5.1); SGPT/ALT 12 U/L (5-49); THYROXINE (T4) TOTAL 17.9 ug/dl (4.5-10.9); TOTAL PROTEIN 6.2 gm/dL (6.0-8.0); TRIGLYCERIDES 139 mg/dl (<150)
[2025-01-17 10:03] LABS: VITAMIN D, 25-HYDROXY 57.9 ng/mL (30-100)
[2025-01-17 10:41] LABS: T3 UPTAKE 58.1 % (22.4-36.7)
== END | disposition home or self-care (01) ==
LOC: LAB 08:57
PROVIDERS: ATTEND Family Medicine
DX: R79.89 Other specified abnormal findings of blood chemistry (principal); R53.83 Other fatigue; E78.5 Hyperlipidemia, unspecified; E55.9 Vitamin D deficiency, unspecified

== ENCOUNTER → 2025-04-12 | Outpatient (CLI) | payer MEDICAID ==
[2025-04-12 12:06] LABS: BASO # 0.0 10*3/uL (0.0-0.1); BASO % 0.4 % (0.0-1.0); EOS # 0.2 10*3/uL (0.0-0.4); EOS % 1.8 % (1.0-4.0); MEAN CELL VOLUME 75.4 fl (81.0-99.0); MEAN CORPUSCULAR HGB 23.6 pg (27.0-31.0); MEAN PLATELET VOLUME 10.9 fl (9.6-12.3); MONO # 0.5 10*3/uL (0.1-1.0); MONO % 5.3 % (3.0-9.0); NEUT # 6.5 10*3/uL (2.3-7.9); NEUT % 70.6 % (47.0-73.0); NUCLEATED RED BLOOD CELL 0.0 % (0.0-0.0); NUCLEATED RED BLOOD CELL 0.0 10*3/uL (0.0-0.0); PLATELET COUNT AUTOMATED 287 10*3/uL (130-400); RED CELL DISTRI WIDTH 15.7 % (0-14.5); RETICULOCYTE % 1.45 % (0.50-2.50)
[2025-04-12 12:44] LABS: BUN 8 mg/dl (9-23); LDL CHOLESTEROL 58 mg/dL (9-159); THYROXINE (T4) TOTAL 19.6 ug/dl (4.5-10.9)
[2025-04-12 12:48] LABS: VITAMIN D, 25-HYDROXY 61.5 ng/mL (30-100)
[2025-04-12 13:14] LABS: SGPT/ALT < 7 U/L (5-49); T3 UPTAKE 60.4 % (22.4-36.7)
== END ==
LOC: LAB 11:15
PROVIDERS: ATTEND Family Medicine
DX: E55.9 Vitamin D deficiency, unspecified (principal); R79.89 Other specified abnormal findings of blood chemistry; R53.83 Other fatigue

== ENCOUNTER → 2025-06-09 | Outpatient (CLI) | payer MEDICAID | END | disposition home or self-care (01) | LOC: RAD 12:34 | PROVIDERS: ATTEND Family Medicine | DX: M47.812 Spondylosis without myelopathy or radiculopathy, cervical region (principal); M48.02 Spinal stenosis, cervical region ==

== ENCOUNTER → 2025-08-03 | Outpatient (CLI) | payer MEDICAID ==
[2025-08-03 10:10] LABS: FREE T4 1.08 ng/dl (0.89-1.76)
== END | disposition home or self-care (01) ==
LOC: LAB 09:06
PROVIDERS: Student in an Organized Health Care Education/Training Program; ATTEND Internal Medicine Endocrinology, Diabetes & Metabolism
DX: E05.90 Thyrotoxicosis, unspecified without thyrotoxic crisis or storm (principal)

== ENCOUNTER → 2025-08-25 | Outpatient (CLI) | payer MEDICAID | END | disposition home or self-care (01) | LOC: US 13:07 | PROVIDERS: ATTEND Internal Medicine Endocrinology, Diabetes & Metabolism | DX: E04.2 Nontoxic multinodular goiter (principal) ==